=== PATIENT | male | born 1975 | race Hispanic/Latino ===

== ENCOUNTER 2017-09-11 14:01 | Emergency (ER) | payer OTHER ==
[2017-09-11] MEDS ORDERED: MORPHINE ONE (14:08)
[2017-09-11] MEDS ORDERED: ZOFRAN ONE (14:08)
[2017-09-11] MEDS ORDERED: MORPHINE IV ONE ×2 (14:15→14:45)
[2017-09-11] MEDS ORDERED: ZOFRAN IV ONE (14:16)
[2017-09-11 14:22] LABS: Basophils # (Auto) 0.1 K/mm3 (0.0-0.1); Basophils % (Auto) 0.5 % (0.0-1.8); Eosinophils # (Auto) 0.6 K/mm3 (0.0-0.4); Eosinophils % (Auto) 5.3 % (0.0-4.3); Hematocrit 44.8 % (35.5-45.6); Hemoglobin 15.1 gm/dl (11.8-15.2); Lymphocytes # (Auto) 3.1 K/mm3 (1.2-5.4); Mean Corpuscular HGB Conc 34 % (32-34); Mean Corpuscular Hemoglobin 32 pg (28-32); Mean Corpuscular Volume 95 fl (84-94); Monocytes # (Auto) 1.4 K/mm3 (0.0-0.8); Monocytes % (Auto) 12.4 % (0.0-7.3); Platelet Count 274 K/mm3 (140-440); Red Cell Distribution Width 13.3 % (13.2-15.2)
[2017-09-11 14:26] LABS: INR 0.82 (0.87-1.13)
[2017-09-11 14:28] LABS: BUN/Creatinine Ratio 12; Blood Urea Nitrogen 15 mg/dL (9-20); Calcium 9.6 mg/dL (8.4-10.2); Hemolysis Index 18
--- NOTE | 2017-09-11 15:13 | Emergency Department Report ---
<JENNIFER GOODWIN - Last Filed: 09/11/17 15:47> ED General Adult HPI - General Chief complaint: Multiple Trauma Stated complaint: FELL OFF LADDER Time Seen by Provider: 09/11/17 14:14 Source: patient Mode of arrival: Wheelchair Limitations: No Limitations - History of Present Illness Initial comments: 41-year-old male states he was up on a ladder approximately 15 feet. He fell principally onto his left heel. He complains of severe pain in that location. He presented to the triage area by private vehicle. He also complained of some minor discomfort in his left costal area and mild discomfort in his lower back. He denied any head or neck injury. He denied any neurological change. This was an accidental fall. The patient has not been consuming alcohol. He states that he takes no regular medications. He states he has a previous fracture of his left ankle but otherwise reports no other significant injury. -: Gradual Location: chest, back, left (he'll) Severity scale (0 -10): 10 (severe pain left heel only) Quality: aching Consistency: constant Improves with: none Worsens with: none Associated Symptoms: denies other symptoms Treatments Prior to Arrival: none - Related Data Previous Rx's Medication Instructions Recorded Last Taken Type HYDROcodone/ACETAMINOPHEN 1 each PO Q6H PRN #15 tablet 09/11/17 Unknown Rx [Hydrocodon-Acetaminophen 5-325] Allergies Allergy/AdvReac Type Severity Reaction Status Date / Time No Known Allergies Allergy Unverified 09/11/17 14:09 ED Review of Systems ROS: Stated complaint: FELL OFF LADDER Other details as noted in HPI Constitutional: denies: chills, fever Eyes: denies: eye pain, eye discharge, vision change ENT: denies: ear pain, throat pain Respiratory: denies: cough, shortness of breath, wheezing Cardiovascular: chest pain (lateral costal). denies: palpitations Endocrine: no symptoms reported Gastrointestinal: denies: abdominal pain, nausea, diarrhea Genitourinary: denies: urgency, dysuria Musculoskeletal: as per HPI, back pain. denies: joint swelling, arthralgia Skin: denies: rash, lesions Neurological: denies: headache, weakness, paresthesias Psychiatric: denies: anxiety, depression Hematological/Lymphatic: denies: easy bleeding, easy bruising ED Past Medical Hx - Past Medical History Previous Medical History?: No - Surgical History Additional Surgical History: hernia repair, right hand - Social History Smoking Status: Unknown if ever smoked Substance Use Type: None - Medications Home Medications: Home Medications Medication Instructions Recorded Confirmed Last Taken Type HYDROcodone/ACETAMINOPHEN 1 each PO Q6H PRN #15 tablet 09/11/17 Unknown Rx [Hydrocodon-Acetaminophen 5-325] ED Physical Exam - General Limitations: No Limitations General appearance: alert, in no apparent distress - Head Head exam: Present: atraumatic, normocephalic - Eye Eye exam: Present: normal appearance, PERRL, EOMI. Absent: scleral icterus - ENT ENT exam: Present: mucous membranes moist - Neck Neck exam: Present: normal inspection. Absent: tenderness, meningismus - Respiratory Respiratory exam: Present: normal lung sounds bilaterally, chest wall tenderness (mild chest wall tenderness but no crepitus left lateral chest wall no ecchymosis noted). Absent: respiratory distress - Cardiovascular Cardiovascular Exam: Present: regular rate, normal rhythm. Absent: systolic murmur, diastolic murmur, rubs, gallop - GI/Abdominal GI/Abdominal exam: Present: soft, normal bowel sounds. Absent: distended, tenderness, guarding, rebound, rigid, organomegaly, mass, bruit, pulsatile mass , hernia - Rectal Rectal exam: Present: deferred - Extremities Exam Extremities exam: Present: normal inspection, tenderness (left calcaneus), other (question calcaneal compression and no ecchymosis seen). Absent: joint swelling, calf tenderness - Back Exam Back exam: Present: normal inspection, full ROM, other (remarkably normal back exam with no lumbar tenderness at all). Absent: tenderness, CVA tenderness (R) , CVA tenderness (L), muscle spasm, paraspinal tenderness, vertebral tenderness , rash noted - Neurological Exam Neurological exam: Present: alert, oriented X3, CN II-XII intact. Absent: motor sensory deficit - Psychiatric Psychiatric exam: Present: normal affect, normal mood - Skin Skin exam: Present: warm, dry, intact, normal color. Absent: rash ED Course Vital Signs 09/11/17 09/11/17 09/11/17 14:06 14:30 16:08 Temperature 98.4 F 98.2 F Pulse Rate 89 88 86 Respiratory 20 18 18 Rate Blood Pressure 180/110 Blood Pressure 117/85 135/85 [Right] O2 Sat by Pulse 98 100 100 Oximetry - Reevaluation(s) Reevaluation #1: She was provided by Dr. Gomez. He requested a CT scan to decide on recommendations. The patient will be signed over to my oncoming colleague for that. I reexamined the patient's pain is controlled. He is resting comfortably and is in hemodynamically stable condition. 09/11/17 15:47 Reevaluation #2: Patient has no complaint of back pain. He is not complaining of his abdomen or his chest bothering him either. CT of his foot will be ordered. 09/11/17 15:52 ED Medical Decision Making - Lab Data Result diagrams: 09/11/17 14:00 09/11/17 14:00 - Radiology Data interpreted by me: Laboratory nondisplaced fracture of the left calcaneus. I do not see any other signs of acute injury. There is no pneumothorax. I do not see rib fractures. I do not see any evidence of any acute lumbar spine injuries. Critical care attestation.: If time is entered above; I have spent that time in minutes in the direct care of this critically ill patient, excluding procedure time. ED Disposition Clinical Impression: Left calcaneal fracture Qualifiers: Encounter type: initial encounter Calcaneus location: body Fracture type: closed Fracture alignment: nondisplaced Qualified Code(s): S92.015A - Nondisplaced fracture of body of left calcaneus, initial encounter for closed fracture Disposition: DC-01 TO HOME OR SELFCARE Condition: Stable Additional Instructions: Please do not walk on your heel until you have been seen by orthopedics. Prescriptions: HYDROcodone/ACETAMINOPHEN [Hydrocodon-Acetaminophen 5-325] 1 each PO Q6H PRN # 15 tablet PRN Reason: Pain, Moderate (4-6) Referrals: PRIMARY CARE, [Primary Care Provider] - 3-5 Days <LORENA TORRES - Last Filed: 09/11/17 18:20> ED Medical Decision Making - Lab Data Result diagrams: 09/11/17 14:00 09/11/17 14:00 - Radiology Data interpreted by me: - Medical Decision Making I received this patient in sign out from Dr. Goodwin to follow up on the patient' s CT scan. It shows a mildly displaced calcaneus fracture. D/w Jason, who recommends splinting, Non-weightbaring, and out-pt management. Pt lives in [place]. He will follow up with orthopedics there. ED Disposition Is pt being admited?: No Does the pt Need Aspirin: No
--- NOTE | 2017-09-11 16:24 | XRay Report ---
FINAL REPORT EXAM: XR CALCANEOUS 2+V LT HISTORY: Trauma pain TECHNIQUE: Two views left calcaneus Comparison: Foot film same day FINDINGS: There is a comminuted left calcaneal fracture with impaction of the tuberosity. Boehler's angle is not significantly reduced. There is no involvement of the anterior process. There is degenerative change of the dorsal midfoot articulation with the hindfoot. Talar neck is incompletely assessed. IMPRESSION: Comminuted impacted calcaneal fracture.
--- NOTE | 2017-09-11 16:26 | XRay Report ---
FINAL REPORT EXAM: XR FOOT 3+V LT HISTORY: Trauma pain TECHNIQUE: Three views left foot Comparison: Calcaneus same day FINDINGS: Comminuted calcaneal fracture with impaction of the tuberosity. Degenerative change of the talonavicular junction without definite talar neck fracture. No other fracture identified. IMPRESSION: Impacted comminuted calcaneal fracture. 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
--- NOTE | 2017-09-11 16:28 | XRay Report ---
FINAL REPORT EXAM: XR SPINE LUMBOSACRAL 2-3V HISTORY: Trauma pain TECHNIQUE: Two views lumbosacral spine Comparison: None FINDINGS: Normal bony mineralization. Normal lumbar lordosis. Mild T12 wedging. Mild T11 wedging. No discrete fracture. No cortical step-off. Significant fecal retention. IMPRESSION: T11 and T12 wedging appear to be degenerative but a subtle vertebral impaction injury related to the patient's trauma and calcaneus impaction fracture cannot be excluded. If pain localizes to this location, recommend MRI thoracolumbar junction.
[2017-09-11 16:33] LABS: Bilirubin,Urine NEG (Negative); Blood,Urine NEG (Negative); Color,Urine Yellow (Yellow); Mucus,Urine FEW /HPF; Protein,Urine <15 mg/dL mg/dL (Negative); Urobilinogen,Urine < 2.0 mg/dL (<2.0)
--- NOTE | 2017-09-11 16:33 | XRay Report ---
FINAL REPORT EXAM: XR RIBS UNI W PA CHEST 3+V LT HISTORY: Trauma pain TECHNIQUE: Frontal chest and 3 views of the left ribs were performed Comparison: None FINDINGS: Hypoventilated lungs. Heart size is normal. No pneumothorax. No displaced rib fractures identified. Imaged scapula and left glenohumeral joint is unremarkable. The aortic knob is unremarkable. The trachea is midline. Paraspinal line is normal. IMPRESSION: Hypoventilated lungs. No rib fractures identified. No pneumothorax.
[2017-09-11 16:34] LABS: Amphetamine Screen,Urine PRESUMPTIVE NEGATIVE; Benzodiazepines Screen,Urine PRESUMPTIVE NEGATIVE; Cannabinoid Screen,Urine PRESUMPTIVE NEGATIVE; Methadone Screen,Urine PRESUMPTIVE NEGATIVE
[2017-09-11 16:47] LABS: Cocaine Screen,Urine PRESUMPTIVE POSITIVE; Opiate Screen,Urine PRESUMPTIVE POSITIVE
[2017-09-11] MEDS ORDERED: NORCO 5/325 PO ONE (16:55)
--- NOTE | 2017-09-11 17:20 | Cat Scan Report ---
FINAL REPORT EXAM: CT LOWER EXTREMITY LT WO CON HISTORY: trauma, left calcaneus fracture TECHNIQUE: Axial helical imaging through the lower leg, ankle and hindfoot with sagittal and coronal reformatted images obtained. Comparison: X-ray left calcaneus and foot also performed today FINDINGS: There is a comminuted and displaced fracture of the calcaneus with greater than 4 fracture fragments. A fracture line extends superiorly and appears to enter the subarticular joint on the medial aspect of the joint. 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 The mortise joint is maintained. IMPRESSION: 1. Comminuted and displaced fracture of the calcaneus with a fracture line that extends superiorly in appears intra the subarticular joint on the medial aspect of the joint. 2. 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
--- NOTE | 2017-09-11 18:44 | Consultation ---
History of Present Illness - [facility] Consult date: 09/11/17 Consult reason: fracture History of present illness: 41 y/o male with c/o left heel pain and swelling after fall from height of 15ft earlier today, seen in the ED at [facility] where xrays revealed fracture left calcaneus Medications and Allergies Allergies Allergy/AdvReac Type Severity Reaction Status Date / Time No Known Allergies Allergy Unverified 09/11/17 14:09 Home Medications Medication Instructions Recorded Confirmed Last Taken Type oxyCODONE /ACETAMINOPHEN [Percocet 1 tab PO Q6HR PRN #15 tablet 09/11/17 Unknown Rx 5/325] Physical Examination - Physical exam Narrative exam: left foot - moderate swelling, no gross deformity, tender on palpation, decreased active ROM... Assessment and Plan Left calcaneus fracture with no articular involvement Recommend - conservative mgmt with compression bandage, nonweight bearing...
[2017-09-11 18:55] VITALS: BP 130/93
== END 2017-09-11 19:26 | disposition home or self-care (01) ==
LOC: ED 14:01
DX: S92.015A Nondisplaced fracture of body of left calcaneus, initial encounter for closed fracture (principal); R07.81 Pleurodynia; M54.5 Low back pain; W17.89XA Other fall from one level to another, initial encounter; Y93.89 Activity, other specified; Y92.89 Other specified places as the place of occurrence of the external cause; Y99.8 Other external cause status
CPT/HCPCS: 36415; 71101; 72100; 73630; 73650; 73700; 80048; 80307; 81001; 85025; 85610; 85730; 86850; 86900; 86901; 96374; 96375; 96376; 99285; J2270; J2405